=== PATIENT | female | born 1995 | race African-American/Black ===

== ENCOUNTER 2023-04-19 11:46 | Emergency (ER) | payer OTHER ==
[2023-04-19 12:08] VITALS: TEMP 98.6; BMI 24.3
[2023-04-19 13:30] LABS: BASO % 0.3 % (0-2.0); EOS % 0.3 % (0-4.5); HEMATOCRIT 38.1 % (32.4-45.2); HEMOGLOBIN 12.6 GM/dL (10.7-15.3); MCH 26.8 pg (25.7-33.7); MCHC 33.2 g/dl (32.0-36.0); MEAN CELL VOLUME 80.8 fl (80-96); MEAN PLT VOLUME 7.4 fl (7.5-11.1); NEUT % 77.4 % (42.8-82.8); PLATELET COUNT 321 10^3/uL (134-434); RBC 4.71 M/mm3 (3.60-5.2); RDW 14.2 % (11.6-15.6); WHITE BLOOD COUNT 9.9 K/mm3 (4.0-10.0)
[2023-04-19 13:32] LABS: EPI CELLS 19 /uL (0-25.1); HYALINE CASTS 1 /uL (0-3.1); URINE APPEARANCE CLEAR; URINE BACTERIA 42 /uL (0-1359); URINE BILIRUBIN NEGATIVE (NEGATIVE); URINE COLOR YELLOW; URINE GLUCOSE (UA) NEGATIVE (NEGATIVE); URINE KETONE 2+ (NEGATIVE); URINE LEUK ESTERASE TRACE (NEGATIVE); URINE NITRITE NEGATIVE (NEGATIVE); URINE PROTEIN NEGATIVE (NEGATIVE); URINE RBC 17 /uL (0-23.9); URINE UROBILINOGEN 0.2 mg/dL (0.2-1.0); URINE WBC 14 /uL (0-25.8)
[2023-04-19 13:37] LABS: INR 1.13 (0.83-1.09); PROTHROMBIN TIME (PATIENT) 13.1 SEC (9.7-13.0)
[2023-04-19 13:47] LABS: POTASSIUM 3.7 mmol/L (3.5-5.1)
[2023-04-19 13:54] LABS: BLOOD UREA NITROGEN 10.8 mg/dL (7-18); CALCIUM 9.1 mg/dL (8.5-10.1)
[2023-04-19 13:55] LABS: ALBUMIN 3.7 g/dl (3.4-5.0)
[2023-04-19 13:57] LABS: CREATININE 0.7 mg/dL (0.55-1.3)
[2023-04-19 13:59] LABS: BILIRUBIN,TOTAL 0.6 mg/dL (0.2-1); TOT PROT 7.4 g/dl (6.4-8.2)
[2023-04-19 17:53] VITALS: BP 127/65; PULSE 68; RESP 17
== END 2023-04-19 16:45 | disposition home or self-care (01) ==
LOC: JER 11:46
DX: O00.90 Unspecified ectopic pregnancy without intrauterine pregnancy (principal); O26.891 Other specified pregnancy related conditions, first trimester; R10.30 Lower abdominal pain, unspecified; Z3A.01 Less than 8 weeks gestation of pregnancy
CPT/HCPCS: 36415; 76817-TC; 80053; 81003; 84702; 85025; 85610; 85730; 86850; 86900; 86901; 87086; 99284-25

== ENCOUNTER 2023-04-21 09:33 | Emergency (ER) | payer OTHER ==
[2023-04-21 09:53] VITALS: BP 153/98; PULSE 116; RESP 18; TEMP 98.5; BMI 24.3
[2023-04-21 10:47] LABS: BASO % 0.2 % (0-2.0); EOS % 0.3 % (0-4.5); HEMATOCRIT 38.9 % (32.4-45.2); HEMOGLOBIN 12.6 GM/dL (10.7-15.3); MCH 26.7 pg (25.7-33.7); MCHC 32.4 g/dl (32.0-36.0); MEAN CELL VOLUME 82.4 fl (80-96); MEAN PLT VOLUME 7.3 fl (7.5-11.1); MONO % 9.3 % (3.8-10.2); NEUT % 82.2 % (42.8-82.8); PLATELET COUNT 289 10^3/uL (134-434); RBC 4.72 M/mm3 (3.60-5.2); RDW 13.8 % (11.6-15.6); WHITE BLOOD COUNT 9.4 K/mm3 (4.0-10.0)
[2023-04-21 11:04] LABS: POTASSIUM 3.8 mmol/L (3.5-5.1)
[2023-04-21 11:06] LABS: BLOOD UREA NITROGEN 12.5 mg/dL (7-18); CALCIUM 8.7 mg/dL (8.5-10.1)
[2023-04-21 11:09] LABS: CREATININE 0.7 mg/dL (0.55-1.3)
[2023-04-21] MEDS ORDERED: METHOTREXATE SODIUM/PF 25 MG/ML VIAL IM ONE ×2 (13:39→14:25)
[2023-04-21] MEDS ORDERED: RHO(D) IMMUNE GLOBULIN 1,500 UNIT DISP.SYRIN IM ONE (13:44)
== END 2023-04-21 15:42 | disposition home or self-care (01) ==
LOC: JER 09:33
PROC: 3E023GC Introduction of Other Therapeutic Substance into Muscle, Percutaneous Approach (ICD-10-PCS; principal; 2023-04-21)
PROC: 3E023GC Introduction of Other Therapeutic Substance into Muscle, Percutaneous Approach (ICD-10-PCS; 2023-04-21)
DX: O00.101 Right tubal pregnancy without intrauterine pregnancy (principal); O26.899 Other specified pregnancy related conditions, unspecified trimester; R10.30 Lower abdominal pain, unspecified; Z3A.00 Weeks of gestation of pregnancy not specified
CPT/HCPCS: 36415; 76830-TC; 80048; 84702; 85025; 86850; 86900; 86901; 96372; 99284-25; J2790; J9260

== ENCOUNTER 2023-04-24 08:31 | Emergency (ER) | payer OTHER ==
[2023-04-24 08:39] VITALS: BMI 24.3
[2023-04-24 09:15] LABS: BASO % 0.3 % (0-2.0); EOS % 0.7 % (0-4.5); HEMATOCRIT 38.4 % (32.4-45.2); HEMOGLOBIN 12.6 GM/dL (10.7-15.3); LYMPH % 14.5 % (8-40); MCH 26.8 pg (25.7-33.7); MEAN CELL VOLUME 81.1 fl (80-96); MEAN PLT VOLUME 7.6 fl (7.5-11.1); MONO % 5.5 % (3.8-10.2); PLATELET COUNT 290 10^3/uL (134-434); RBC 4.73 M/mm3 (3.60-5.2); RDW 13.7 % (11.6-15.6); WHITE BLOOD COUNT 6.4 K/mm3 (4.0-10.0)
[2023-04-24 09:42] LABS: ALBUMIN 3.7 g/dl (3.4-5.0); BLOOD UREA NITROGEN 12.7 mg/dL (7-18); CALCIUM 9.2 mg/dL (8.5-10.1)
[2023-04-24 09:45] LABS: CREATININE 0.8 mg/dL (0.55-1.3)
[2023-04-24 09:47] LABS: BILIRUBIN,TOTAL 0.8 mg/dL (0.2-1); TOT PROT 7.5 g/dl (6.4-8.2)
[2023-04-24 11:38] VITALS: BP 151/90; PULSE 94; RESP 20; TEMP 98.2
== END 2023-04-24 11:38 | disposition home or self-care (01) ==
LOC: JERFT 08:31
DX: O00.90 Unspecified ectopic pregnancy without intrauterine pregnancy (principal)
CPT/HCPCS: 36415; 80053; 84702; 85025; 99283-25

== ENCOUNTER 2023-05-05 20:50 | Inpatient (IN) | payer OTHER ==
[2023-05-05 21:00] VITALS: BMI 24.3
[2023-05-05 22:24] LABS: BASO % 0.3 % (0-2.0); EOS % 1.8 % (0-4.5); HEMATOCRIT 38.1 % (32.4-45.2); HEMOGLOBIN 12.4 GM/dL (10.7-15.3); LYMPH % 17.5 % (8-40); MCH 26.6 pg (25.7-33.7); MCHC 32.6 g/dl (32.0-36.0); MEAN CELL VOLUME 81.7 fl (80-96); MEAN PLT VOLUME 7.4 fl (7.5-11.1); MONO % 11.7 % (3.8-10.2); NEUT % 68.7 % (42.8-82.8); PLATELET COUNT 325 10^3/uL (134-434); RBC 4.66 M/mm3 (3.60-5.2); WHITE BLOOD COUNT 7.7 K/mm3 (4.0-10.0)
[2023-05-05 22:45] LABS: POTASSIUM 3.8 mmol/L (3.5-5.1)
[2023-05-05 22:47] LABS: CALCIUM 9.1 mg/dL (8.5-10.1)
[2023-05-05 22:48] LABS: ALBUMIN 3.8 g/dl (3.4-5.0); BLOOD UREA NITROGEN 12.2 mg/dL (7-18)
[2023-05-05 22:51] LABS: CREATININE 0.9 mg/dL (0.55-1.3)
[2023-05-05 22:53] LABS: BILIRUBIN,TOTAL 0.4 mg/dL (0.2-1); TOT PROT 7.3 g/dl (6.4-8.2)
[2023-05-06] MEDS: DEXTROSE 5%-LACTATED RINGERS 1,000 ML IV SCH (04:20)
[2023-05-06] MEDS: ACETAMINOPHEN 1000 MG/100 ML BAG IVPB PRN (04:32)
[2023-05-06] MEDS ORDERED: PROPOFOL 20 ML ONE (08:39)
[2023-05-06] MEDS ORDERED: ONDANSETRON 4 MG/2 ML VIAL ONE ×2 (08:39→11:06)
[2023-05-06] MEDS ORDERED: ceFAZolin SODIUM 1 GM VIAL ONE (08:39)
[2023-05-06] MEDS ORDERED: ROCURONIUM BROMIDE 50 MG/5 ML SYRINGE ONE (08:39)
[2023-05-06] MEDS ORDERED: KETOROLAC TROMETHAMINE 30 MG/1 ML VIAL ONE (08:39)
[2023-05-06] MEDS ORDERED: SODIUM CHLORIDE 0.9% P/F 10 ML VIAL IJ ONE (08:39)
[2023-05-06] MEDS ORDERED: LIDOCAINE HCL/PF 2% SDV 5ML VIAL ONE (08:39)
[2023-05-06] MEDS ORDERED: MIDAZOLAM HCL 2 MG/2 ML SINGLE DOSE VIAL ONE (08:40)
[2023-05-06] MEDS: ceFAZolin SODIUM 1 GM VIAL IVPB ONE (09:08)
[2023-05-06] MEDS ORDERED: NEOSTIGMINE METHYLSULFATE 0.5 MG/1 ML - 10 ML MDV ONE (09:42)
[2023-05-06] MEDS ORDERED: GLYCOPYRROLATE 0.2 MG/1 ML VIAL ONE ×2 (09:42)
[2023-05-06] MEDS ORDERED: ONDANSETRON 4 MG/2 ML VIAL IVPUSH PRN (10:18)
[2023-05-06] MEDS ORDERED: IBUPROFEN 600 MG TABLET (FP) PO PRN ×2 (10:18→20:55)
[2023-05-06] MEDS: ACETAMINOPHEN INJECTION 100 ML IVPB ONE (10:30)
[2023-05-06] MEDS ORDERED: HYDROmorphone HCl 2 MG/ML VIAL ONE (10:35)
[2023-05-06] MEDS: HYDROmorphone HCl 2 MG/ML VIAL IVPUSH PRN (10:40)
[2023-05-06] MEDS: ONDANSETRON 4 MG/2 ML VIAL IVPUSH PRN (11:10)
[2023-05-06] MEDS: ELECTROLYTE-148 SOLN 1,000 ML IV SCH (11:13)
[2023-05-06] MEDS: IBUPROFEN 800 MG/8 ML IJ IVPB PRN (15:48)
[2023-05-06] MEDS: oxyCODONE HCL 5 MG TABLET PO PRN (20:21)
[2023-05-06] MEDS: LACTATED RINGERS SOLUTION 1,000 ML IV SCH (21:04)
[2023-05-06] MEDS: IBUPROFEN 600 MG TABLET (FP) PO PRN (22:59)
[2023-05-07] MEDS: ACETAMINOPHEN 325 MG TABLET (FP) PO PRN (05:50)
[2023-05-07 09:52] LABS: BASO % 0.2 % (0-2.0); HEMATOCRIT 36.2 % (32.4-45.2); HEMOGLOBIN 11.7 GM/dL (10.7-15.3); MCH 26.5 pg (25.7-33.7); MCHC 32.4 g/dl (32.0-36.0); MEAN PLT VOLUME 7.5 fl (7.5-11.1); MONO % 7.7 % (3.8-10.2); NEUT % 82.1 % (42.8-82.8); PLATELET COUNT 318 10^3/uL (134-434); RBC 4.42 M/mm3 (3.60-5.2); WHITE BLOOD COUNT 13.2 K/mm3 (4.0-10.0)
[2023-05-07 10:08] LABS: POTASSIUM 3.9 mmol/L (3.5-5.1)
[2023-05-07 10:09] LABS: CALCIUM 8.8 mg/dL (8.5-10.1)
[2023-05-07 10:10] LABS: BLOOD UREA NITROGEN 7.9 mg/dL (7-18)
[2023-05-07 10:13] LABS: CREATININE 0.8 mg/dL (0.55-1.3)
[2023-05-07 11:22] VITALS: BP 129/77; PULSE 105; RESP 17; TEMP 97.6
== END 2023-05-07 12:00 | disposition home or self-care (01) | DRG 545 ==
LOC: JERFT 20:50 → JERBED 05-06 00:41 → J3W 05-06 02:55
PROVIDERS: ADMIT Obstetrics & Gynecology; ATTEND Obstetrics & Gynecology
PROC: 10T24ZZ Resection of Products of Conception, Ectopic, Percutaneous Endoscopic Approach (ICD-10-PCS; principal; 2023-05-06 09:00)
DX: O00.101 Right tubal pregnancy without intrauterine pregnancy (principal); I10 Essential (primary) hypertension
CPT/HCPCS: 36415; 76817-TC; 80048; 80053; 84702; 85025; 86850; 86870; 86880; 86900; 86901; 86902; 87635; 88305-TC; 94760; 99285-25; J0131